=== PATIENT | female | born 1940 | race Caucasian/White ===

== ENCOUNTER 2017-08-20 12:22 | Inpatient (IN) | payer MEDICARE ==
[~2017-08-20 12:22] MED LIST: BISACODYL 10 MG SUPP PR; BISACODYL 5 MG TAB PO; FLEET ENEMA PR
[2017-08-20] MEDS: SENNA 8.6 MG TAB (SENOKOT) PO ×2 (21:00)
[2017-08-20] MEDS: ATORVASTATIN 20 MG TAB PO ×2 (21:03)
[2017-08-21 07:25] LABS: BASO # 0.1 10^3/uL (0.0-0.2); BASO % 0.8 % (0.0-1.0); EOS # 0.4 10^3/uL (0.0-0.50); EOS % 3.8 % (0.0-3.0); HEMATOCRIT 40.4 % (36.0-47.0); HEMOGLOBIN 13.1 g/dl (12.0-15.5); IMMATURE GRANULOCYTE % 1.2 % (0-3.0); LYMPH # 1.6 10^3/uL (1.5-4.5); LYMPH % 14.6 % (24.0-44.0); MEAN CORPUSCULAR HEMOGLOBIN 26.5 pg (27.0-33.0); MEAN CORPUSCULAR HGB CONC 32.4 g/dl (32.0-36.5); MEAN CORPUSCULAR VOLUME 81.6 fl (80.0-96.0); MONO # 1.5 10^3/uL (0.0-0.8); MONO % 13.5 % (0.0-5.0); NEUTROPHILS # 7.2 10^3/uL (1.8-7.7); NEUTROPHILS % 66.1 % (36.0-66.0); PLATELET COUNT, AUTOMATED 228 10^3/uL (150-450); RED BLOOD COUNT 4.95 10^6/uL (4.00-5.40); RED CELL DISTRIBUTION WIDTH 13.7 % (11.5-14.5); WHITE BLOOD COUNT 10.8 10^3/uL (4.0-10.0)
[2017-08-21 07:43] LABS: ALBUMIN 2.8 GM/DL (3.2-5.2); ALBUMIN/GLOBULIN RATIO 0.67 (1.00-1.93); ALKALINE PHOSPHATASE 79 U/L (45-117); ALT/SGPT 18 U/L (12-78); ANION GAP 5 MEQ/L (8-16); AST/SGOT 14 U/L (7-37); BILIRUBIN,TOTAL 0.5 MG/DL (0.2-1.0); BLOOD UREA NITROGEN 24 MG/DL (7-18); CARBON DIOXIDE LEVEL 29 MEQ/L (21-32); CHLORIDE LEVEL 104 MEQ/L (98-107); CREATININE FOR GFR 0.88 MG/DL (0.55-1.30); GLOMERULAR FILTRATION RATE > 60.0 (>39); GLUCOSE, FASTING 116 MG/DL (70-100); POTASSIUM SERUM 4.1 MEQ/L (3.5-5.1); SODIUM LEVEL 138 MEQ/L (136-145)
[2017-08-21] MEDS: QUINAPRIL 20 MG TAB PO ×2 (08:40)
[2017-08-21] MEDS: PANTOPRAZOLE 40MG TAB (PROTONIX) PO ×2 (08:40)
[2017-08-21] MEDS: FLUoxetine 20 MG CAP PO ×2 (08:40)
[2017-08-21] MEDS: ENOXAPARIN 40 MG/0.4 ML SYRINGE (J1650) SC ×2 (08:40)
[2017-08-21] MEDS: ASPIRIN 81 MG CHEW TABLET PO ×2 (08:40)
[2017-08-21] MEDS: ONDANSETRON 4 MG TAB (S0181) PO ×2 (09:40)
[2017-08-21] MEDS: SENNA 8.6 MG TAB (SENOKOT) PO ×2 (21:00)
[2017-08-21] MEDS: ATORVASTATIN 20 MG TAB PO ×2 (21:29)
[2017-08-22] MEDS: ASPIRIN 81 MG CHEW TABLET PO ×2 (08:26)
[2017-08-22] MEDS: PANTOPRAZOLE 40MG TAB (PROTONIX) PO ×2 (08:26)
[2017-08-22] MEDS: FLUoxetine 20 MG CAP PO ×2 (08:26)
[2017-08-22] MEDS: ENOXAPARIN 40 MG/0.4 ML SYRINGE (J1650) SC ×2 (08:27)
[2017-08-22] MEDS: QUINAPRIL 20 MG TAB PO ×2 (08:27)
[2017-08-22] MEDS: SENNA 8.6 MG TAB (SENOKOT) PO ×2 (20:25)
[2017-08-22] MEDS: ATORVASTATIN 20 MG TAB PO ×2 (20:25)
[2017-08-23 06:56] LABS: HEMATOCRIT 40.4 % (36.0-47.0); HEMOGLOBIN 13.2 g/dl (12.0-15.5); MEAN CORPUSCULAR HEMOGLOBIN 26.8 pg (27.0-33.0); MEAN CORPUSCULAR HGB CONC 32.7 g/dl (32.0-36.5); MEAN CORPUSCULAR VOLUME 81.9 fl (80.0-96.0); PLATELET COUNT, AUTOMATED 236 10^3/uL (150-450); RED BLOOD COUNT 4.93 10^6/uL (4.00-5.40); RED CELL DISTRIBUTION WIDTH 13.7 % (11.5-14.5); WHITE BLOOD COUNT 11.9 10^3/uL (4.0-10.0)
[2017-08-23] MEDS: ENOXAPARIN 40 MG/0.4 ML SYRINGE (J1650) SC ×2 (08:21)
[2017-08-23] MEDS: FLUoxetine 20 MG CAP PO ×2 (08:21)
[2017-08-23] MEDS: ASPIRIN 81 MG CHEW TABLET PO ×2 (08:21)
[2017-08-23] MEDS: PANTOPRAZOLE 40MG TAB (PROTONIX) PO ×2 (08:21)
[2017-08-23] MEDS: QUINAPRIL 20 MG TAB PO ×2 (08:23)
[2017-08-23 20:35] LABS: CALCIUM OXALATE CRYSTALS RFX SMALL; KETONE, URINE AUTO RFX NEGATIVE (NEGATIVE); MUCUS, URINE RFX SMALL (NEGATIVE); RBC, URINE AUTO RFX 4 /HPF (0-3); SPECIFIC GRAVITY UR AUTO RFX 1.015 (1.002-1.035); SQUAM EPITHELIAL CELL UR AURFX 0 /HPF (0-6)
[2017-08-23 20:38] LABS: LEUKOCYTE ESTERASE UR AUTO RFX 3+ (NEGATIVE); NITRITE, URINE AUTO RFX POSITIVE (NEGATIVE); WBC, URINE AUTO RFX 15 /HPF (0-3)
[2017-08-23] MEDS: ATORVASTATIN 20 MG TAB PO ×2 (22:26)
[2017-08-23] MEDS: SENNA 8.6 MG TAB (SENOKOT) PO ×2 (22:26)
[2017-08-23] MEDS: BACLOFEN 5MG PER 1/2 TABLET PO ×2 (22:26)
[2017-08-24] MEDS: ASPIRIN 81 MG CHEW TABLET PO ×2 (09:06)
[2017-08-24] MEDS: QUINAPRIL 20 MG TAB PO ×2 (09:06)
[2017-08-24] MEDS: FLUoxetine 20 MG CAP PO ×2 (09:06)
[2017-08-24] MEDS: PANTOPRAZOLE 40MG TAB (PROTONIX) PO ×2 (09:06)
[2017-08-24] MEDS: ENOXAPARIN 40 MG/0.4 ML SYRINGE (J1650) SC ×2 (09:07)
[2017-08-24] MEDS: BACTRIM 160MG/800MG DS TAB PO ×4 (09:07→21:45)
[2017-08-24] MEDS: SENNA 8.6 MG TAB (SENOKOT) PO ×2 (21:00)
[2017-08-24] MEDS: ATORVASTATIN 20 MG TAB PO ×2 (21:45)
[2017-08-24] MEDS: BACLOFEN 5MG PER 1/2 TABLET PO ×2 (21:45)
[2017-08-25] MEDS: ENOXAPARIN 40 MG/0.4 ML SYRINGE (J1650) SC ×2 (09:01)
[2017-08-25] MEDS: QUINAPRIL 20 MG TAB PO ×2 (09:01)
[2017-08-25] MEDS: FLUoxetine 20 MG CAP PO ×2 (09:01)
[2017-08-25] MEDS: PANTOPRAZOLE 40MG TAB (PROTONIX) PO ×2 (09:01)
[2017-08-25] MEDS: ASPIRIN 81 MG CHEW TABLET PO ×2 (09:01)
[2017-08-25] MEDS: BACTRIM 160MG/800MG DS TAB PO ×4 (09:01→21:14)
[2017-08-25] MEDS: BACLOFEN 5MG PER 1/2 TABLET PO ×2 (21:14)
[2017-08-25] MEDS: SENNA 8.6 MG TAB (SENOKOT) PO ×2 (21:14)
[2017-08-25] MEDS: ATORVASTATIN 20 MG TAB PO ×2 (21:14)
[2017-08-26 06:35] LABS: HEMOGLOBIN 12.9 g/dl (12.0-15.5); MEAN CORPUSCULAR HEMOGLOBIN 26.2 pg (27.0-33.0); MEAN CORPUSCULAR HGB CONC 32.3 g/dl (32.0-36.5); MEAN CORPUSCULAR VOLUME 81.3 fl (80.0-96.0); PLATELET COUNT, AUTOMATED 236 10^3/uL (150-450); RED BLOOD COUNT 4.92 10^6/uL (4.00-5.40); RED CELL DISTRIBUTION WIDTH 13.7 % (11.5-14.5); WHITE BLOOD COUNT 11.3 10^3/uL (4.0-10.0)
[2017-08-26] MEDS: QUINAPRIL 20 MG TAB PO ×2 (09:22)
[2017-08-26] MEDS: PANTOPRAZOLE 40MG TAB (PROTONIX) PO ×2 (09:22)
[2017-08-26] MEDS: BACTRIM 160MG/800MG DS TAB PO ×4 (09:22→20:56)
[2017-08-26] MEDS: ASPIRIN 81 MG CHEW TABLET PO ×2 (09:22)
[2017-08-26] MEDS: ENOXAPARIN 40 MG/0.4 ML SYRINGE (J1650) SC ×2 (09:22)
[2017-08-26] MEDS: FLUoxetine 20 MG CAP PO ×2 (09:22)
[2017-08-26] MEDS: BACLOFEN 5MG PER 1/2 TABLET PO ×2 (20:56)
[2017-08-26] MEDS: ATORVASTATIN 20 MG TAB PO ×2 (20:56)
[2017-08-26] MEDS: SENNA 8.6 MG TAB (SENOKOT) PO ×2 (21:00)
[2017-08-26] MEDS: ACETAMINOPHEN TAB 650MG DOSE (2X325MG) PO ×2 (21:03)
[2017-08-27] MEDS: ENOXAPARIN 40 MG/0.4 ML SYRINGE (J1650) SC ×2 (09:23)
[2017-08-27] MEDS: BACTRIM 160MG/800MG DS TAB PO ×4 (09:23→21:25)
[2017-08-27] MEDS: PANTOPRAZOLE 40MG TAB (PROTONIX) PO ×2 (09:24)
[2017-08-27] MEDS: FLUoxetine 20 MG CAP PO ×2 (09:24)
[2017-08-27] MEDS: QUINAPRIL 20 MG TAB PO ×2 (09:24)
[2017-08-27] MEDS: ASPIRIN 81 MG CHEW TABLET PO ×2 (09:24)
[2017-08-27] MEDS: BACLOFEN 5MG PER 1/2 TABLET PO ×2 (16:36)
[2017-08-27] MEDS: SENNA 8.6 MG TAB (SENOKOT) PO ×2 (21:25)
[2017-08-27] MEDS: ATORVASTATIN 20 MG TAB PO ×2 (21:25)
[2017-08-28] MEDS: FLUoxetine 20 MG CAP PO ×2 (09:03)
[2017-08-28] MEDS: PANTOPRAZOLE 40MG TAB (PROTONIX) PO ×2 (09:03)
[2017-08-28] MEDS: ASPIRIN 81 MG CHEW TABLET PO ×2 (09:03)
[2017-08-28] MEDS: BACTRIM 160MG/800MG DS TAB PO ×4 (09:03→20:19)
[2017-08-28] MEDS: ENOXAPARIN 40 MG/0.4 ML SYRINGE (J1650) SC ×2 (09:04)
[2017-08-28] MEDS: QUINAPRIL 20 MG TAB PO ×2 (09:04)
[2017-08-28] MEDS: BISACODYL 5 MG TAB PO ×2 (13:30)
[2017-08-28] MEDS: BACLOFEN 5MG PER 1/2 TABLET PO ×2 (17:25)
[2017-08-28] MEDS: ATORVASTATIN 20 MG TAB PO ×2 (20:19)
[2017-08-28] MEDS: SENNA 8.6 MG TAB (SENOKOT) PO ×2 (20:19)
[2017-08-29] MEDS: ACETAMINOPHEN TAB 650MG DOSE (2X325MG) PO ×2 (04:17)
[2017-08-29 06:52] LABS: HEMATOCRIT 41.1 % (36.0-47.0); HEMOGLOBIN 13.5 g/dl (12.0-15.5); MEAN CORPUSCULAR HEMOGLOBIN 26.6 pg (27.0-33.0); MEAN CORPUSCULAR HGB CONC 32.8 g/dl (32.0-36.5); MEAN CORPUSCULAR VOLUME 81.1 fl (80.0-96.0); PLATELET COUNT, AUTOMATED 273 10^3/uL (150-450); RED BLOOD COUNT 5.07 10^6/uL (4.00-5.40); RED CELL DISTRIBUTION WIDTH 13.8 % (11.5-14.5); WHITE BLOOD COUNT 10.9 10^3/uL (4.0-10.0)
[2017-08-29] MEDS: FLUoxetine 20 MG CAP PO ×2 (09:06)
[2017-08-29] MEDS: PANTOPRAZOLE 40MG TAB (PROTONIX) PO ×2 (09:07)
[2017-08-29] MEDS: QUINAPRIL 20 MG TAB PO ×2 (09:07)
[2017-08-29] MEDS: ENOXAPARIN 40 MG/0.4 ML SYRINGE (J1650) SC ×2 (09:07)
[2017-08-29] MEDS: ASPIRIN 81 MG CHEW TABLET PO ×2 (09:07)
[2017-08-29] MEDS: BACTRIM 160MG/800MG DS TAB PO ×4 (09:07→20:35)
[2017-08-29] MEDS: BACLOFEN 5MG PER 1/2 TABLET PO ×2 (18:20)
[2017-08-29] MEDS: ATORVASTATIN 20 MG TAB PO ×2 (20:35)
[2017-08-29] MEDS: SENNA 8.6 MG TAB (SENOKOT) PO ×2 (20:40)
[2017-08-30] MEDS: ACETAMINOPHEN TAB 650MG DOSE (2X325MG) PO ×4 (01:37→20:45)
[2017-08-30] MEDS: FLUoxetine 20 MG CAP PO ×2 (08:36)
[2017-08-30] MEDS: ASPIRIN 81 MG CHEW TABLET PO ×2 (08:36)
[2017-08-30] MEDS: BACTRIM 160MG/800MG DS TAB PO ×2 (08:36)
[2017-08-30] MEDS: QUINAPRIL 20 MG TAB PO ×2 (08:36)
[2017-08-30] MEDS: PANTOPRAZOLE 40MG TAB (PROTONIX) PO ×2 (08:36)
[2017-08-30] MEDS: ENOXAPARIN 40 MG/0.4 ML SYRINGE (J1650) SC ×2 (08:37)
[2017-08-30] MEDS: BACLOFEN 5MG PER 1/2 TABLET PO ×4 (16:00→20:45)
[2017-08-30] MEDS: SENNA 8.6 MG TAB (SENOKOT) PO ×2 (20:45)
[2017-08-30] MEDS: ATORVASTATIN 20 MG TAB PO ×2 (20:45)
[2017-08-31] MEDS: BACLOFEN 5MG PER 1/2 TABLET PO ×6 (08:04→22:23)
[2017-08-31] MEDS: PANTOPRAZOLE 40MG TAB (PROTONIX) PO ×2 (08:04)
[2017-08-31] MEDS: ASPIRIN 81 MG CHEW TABLET PO ×2 (08:04)
[2017-08-31] MEDS: ENOXAPARIN 40 MG/0.4 ML SYRINGE (J1650) SC ×2 (08:05)
[2017-08-31] MEDS: FLUoxetine 20 MG CAP PO ×2 (08:05)
[2017-08-31] MEDS: QUINAPRIL 20 MG TAB PO ×2 (08:07)
[2017-08-31] MEDS: SENNA 8.6 MG TAB (SENOKOT) PO ×2 (22:23)
[2017-08-31] MEDS: ATORVASTATIN 20 MG TAB PO ×2 (22:23)
[2017-09-01] MEDS: BACLOFEN 5MG PER 1/2 TABLET PO ×6 (08:06→20:24)
[2017-09-01] MEDS: ASPIRIN 81 MG CHEW TABLET PO ×2 (08:06)
[2017-09-01] MEDS: QUINAPRIL 20 MG TAB PO ×2 (08:07)
[2017-09-01] MEDS: FLUoxetine 20 MG CAP PO ×2 (08:07)
[2017-09-01] MEDS: PANTOPRAZOLE 40MG TAB (PROTONIX) PO ×2 (08:07)
[2017-09-01] MEDS: ENOXAPARIN 40 MG/0.4 ML SYRINGE (J1650) SC ×2 (08:07)
[2017-09-01] MEDS: ACETAMINOPHEN TAB 650MG DOSE (2X325MG) PO ×2 (14:50)
[2017-09-01] MEDS: ATORVASTATIN 20 MG TAB PO ×2 (20:24)
[2017-09-01] MEDS: SENNA 8.6 MG TAB (SENOKOT) PO ×2 (20:24)
[2017-09-02] MEDS: FLUoxetine 20 MG CAP PO ×2 (09:10)
[2017-09-02] MEDS: ASPIRIN 81 MG CHEW TABLET PO ×2 (09:10)
[2017-09-02] MEDS: PANTOPRAZOLE 40MG TAB (PROTONIX) PO ×2 (09:10)
[2017-09-02] MEDS: QUINAPRIL 20 MG TAB PO ×2 (09:10)
[2017-09-02] MEDS: BACLOFEN 5MG PER 1/2 TABLET PO ×6 (09:10→21:02)
[2017-09-02] MEDS: ENOXAPARIN 40 MG/0.4 ML SYRINGE (J1650) SC ×2 (09:11)
[2017-09-02] MEDS: SENNA 8.6 MG TAB (SENOKOT) PO ×2 (21:00)
[2017-09-02] MEDS: ATORVASTATIN 20 MG TAB PO ×2 (21:02)
[2017-09-03 06:18] LABS: BASO # 0.1 10^3/uL (0.0-0.2); BASO % 0.6 % (0.0-1.0); EOS # 0.4 10^3/uL (0.0-0.50); EOS % 3.4 % (0.0-3.0); HEMATOCRIT 39.6 % (36.0-47.0); HEMOGLOBIN 12.8 g/dl (12.0-15.5); IMMATURE GRANULOCYTE % 0.7 % (0-3.0); LYMPH # 1.9 10^3/uL (1.5-4.5); LYMPH % 18.2 % (24.0-44.0); MEAN CORPUSCULAR HEMOGLOBIN 26.3 pg (27.0-33.0); MEAN CORPUSCULAR HGB CONC 32.3 g/dl (32.0-36.5); MEAN CORPUSCULAR VOLUME 81.3 fl (80.0-96.0); MONO # 1.2 10^3/uL (0.0-0.8); MONO % 11.2 % (0.0-5.0); NEUTROPHILS # 6.8 10^3/uL (1.8-7.7); NEUTROPHILS % 65.9 % (36.0-66.0); PLATELET COUNT, AUTOMATED 256 10^3/uL (150-450); RED BLOOD COUNT 4.87 10^6/uL (4.00-5.40); RED CELL DISTRIBUTION WIDTH 13.8 % (11.5-14.5); WHITE BLOOD COUNT 10.4 10^3/uL (4.0-10.0)
[2017-09-03 06:37] LABS: ANION GAP 6 MEQ/L (8-16); BLOOD UREA NITROGEN 26 MG/DL (7-18); CALCIUM LEVEL 9.7 MG/DL (8.8-10.2); CARBON DIOXIDE LEVEL 24 MEQ/L (21-32); CHLORIDE LEVEL 106 MEQ/L (98-107); CREATININE FOR GFR 0.93 MG/DL (0.55-1.30); GLOMERULAR FILTRATION RATE > 60.0 (>39); GLUCOSE, FASTING 106 MG/DL (70-100); POTASSIUM SERUM 4.5 MEQ/L (3.5-5.1); SODIUM LEVEL 136 MEQ/L (136-145)
[2017-09-03] MEDS: PANTOPRAZOLE 40MG TAB (PROTONIX) PO ×2 (08:34)
[2017-09-03] MEDS: ENOXAPARIN 40 MG/0.4 ML SYRINGE (J1650) SC ×2 (08:34)
[2017-09-03] MEDS: QUINAPRIL 20 MG TAB PO ×2 (08:34)
[2017-09-03] MEDS: FLUoxetine 20 MG CAP PO ×2 (08:34)
[2017-09-03] MEDS: BACLOFEN 5MG PER 1/2 TABLET PO ×6 (08:34→21:34)
[2017-09-03] MEDS: ASPIRIN 81 MG CHEW TABLET PO ×2 (08:34)
[2017-09-03] MEDS: ATORVASTATIN 20 MG TAB PO ×2 (21:34)
[2017-09-03] MEDS: SENNA 8.6 MG TAB (SENOKOT) PO ×2 (21:34)
[2017-09-04] MEDS: BACLOFEN 5MG PER 1/2 TABLET PO ×6 (08:04→20:38)
[2017-09-04] MEDS: PANTOPRAZOLE 40MG TAB (PROTONIX) PO ×2 (08:04)
[2017-09-04] MEDS: FLUoxetine 20 MG CAP PO ×2 (08:04)
[2017-09-04] MEDS: QUINAPRIL 20 MG TAB PO ×2 (08:04)
[2017-09-04] MEDS: ASPIRIN 81 MG CHEW TABLET PO ×2 (08:04)
[2017-09-04] MEDS: ENOXAPARIN 40 MG/0.4 ML SYRINGE (J1650) SC ×2 (11:06)
[2017-09-04] MEDS: ATORVASTATIN 20 MG TAB PO ×2 (20:38)
[2017-09-04] MEDS: ACETAMINOPHEN TAB 650MG DOSE (2X325MG) PO ×2 (20:39)
[2017-09-04] MEDS: SENNA 8.6 MG TAB (SENOKOT) PO ×2 (20:39)
[2017-09-05] MEDS: PANTOPRAZOLE 40MG TAB (PROTONIX) PO ×2 (08:55)
[2017-09-05] MEDS: ASPIRIN 81 MG CHEW TABLET PO ×2 (08:55)
[2017-09-05] MEDS: BACLOFEN 5MG PER 1/2 TABLET PO ×6 (08:55→20:39)
[2017-09-05] MEDS: FLUoxetine 20 MG CAP PO ×2 (08:55)
[2017-09-05] MEDS: ENOXAPARIN 40 MG/0.4 ML SYRINGE (J1650) SC ×2 (08:55)
[2017-09-05] MEDS: QUINAPRIL 20 MG TAB PO ×2 (08:56)
[2017-09-05] MEDS: ATORVASTATIN 20 MG TAB PO ×2 (20:39)
[2017-09-05] MEDS: SENNA 8.6 MG TAB (SENOKOT) PO ×2 (20:39)
[2017-09-06] MEDS: ASPIRIN 81 MG CHEW TABLET PO ×2 (08:45)
[2017-09-06] MEDS: PANTOPRAZOLE 40MG TAB (PROTONIX) PO ×2 (08:45)
[2017-09-06] MEDS: BACLOFEN 5MG PER 1/2 TABLET PO ×6 (08:45→20:27)
[2017-09-06] MEDS: FLUoxetine 20 MG CAP PO ×2 (08:45)
[2017-09-06] MEDS: QUINAPRIL 20 MG TAB PO ×2 (08:48)
[2017-09-06] MEDS: ENOXAPARIN 40 MG/0.4 ML SYRINGE (J1650) SC ×2 (08:48)
[2017-09-06] MEDS: ATORVASTATIN 20 MG TAB PO ×2 (20:27)
[2017-09-06] MEDS: SENNA 8.6 MG TAB (SENOKOT) PO ×2 (20:29)
[2017-09-07] MEDS: BACLOFEN 5MG PER 1/2 TABLET PO ×6 (09:41→20:29)
[2017-09-07] MEDS: PANTOPRAZOLE 40MG TAB (PROTONIX) PO ×2 (09:41)
[2017-09-07] MEDS: FLUoxetine 20 MG CAP PO ×2 (09:41)
[2017-09-07] MEDS: QUINAPRIL 20 MG TAB PO ×2 (09:41)
[2017-09-07] MEDS: ENOXAPARIN 40 MG/0.4 ML SYRINGE (J1650) SC ×2 (09:41)
[2017-09-07] MEDS: ASPIRIN 81 MG CHEW TABLET PO ×2 (09:41)
[2017-09-07 14:57] LABS: AMORPHOUS SEDIMENT RFX MODERATE (NEGATIVE); KETONE, URINE AUTO RFX NEGATIVE (NEGATIVE); RBC, URINE AUTO RFX 3 /HPF (0-3); SPECIFIC GRAVITY UR AUTO RFX 1.015 (1.002-1.035); SQUAM EPITHELIAL CELL UR AURFX 0 /HPF (0-6); TRIPLE PHOSPHATE CRYSTALS RFX SMALL; WBC, URINE AUTO RFX 4 /HPF (0-3)
[2017-09-07 15:30] LABS: LEUKOCYTE ESTERASE UR AUTO RFX 2+ (NEGATIVE); NITRITE, URINE AUTO RFX POSITIVE (NEGATIVE)
[2017-09-07] MEDS: ATORVASTATIN 20 MG TAB PO ×2 (20:29)
[2017-09-07] MEDS: BACTRIM 160MG/800MG DS TAB PO ×2 (20:29)
[2017-09-07] MEDS: SENNA 8.6 MG TAB (SENOKOT) PO ×2 (20:59)
[2017-09-08] MEDS: QUINAPRIL 20 MG TAB PO ×2 (09:11)
[2017-09-08] MEDS: FLUoxetine 20 MG CAP PO ×2 (09:11)
[2017-09-08] MEDS: ASPIRIN 81 MG CHEW TABLET PO ×2 (09:11)
[2017-09-08] MEDS: BACTRIM 160MG/800MG DS TAB PO ×4 (09:11→20:10)
[2017-09-08] MEDS: BACLOFEN 5MG PER 1/2 TABLET PO ×6 (09:12→20:10)
[2017-09-08] MEDS: PANTOPRAZOLE 40MG TAB (PROTONIX) PO ×2 (09:12)
[2017-09-08] MEDS: ENOXAPARIN 40 MG/0.4 ML SYRINGE (J1650) SC ×2 (09:12)
[2017-09-08 20:04] LABS: BEDSIDE GLUCOSE 168 MG/DL (83-110)
[2017-09-08] MEDS: ATORVASTATIN 20 MG TAB PO ×2 (20:10)
[2017-09-08] MEDS: SENNA 8.6 MG TAB (SENOKOT) PO ×2 (21:00)
[2017-09-09] MEDS: ENOXAPARIN 40 MG/0.4 ML SYRINGE (J1650) SC ×2 (08:03)
[2017-09-09] MEDS: PANTOPRAZOLE 40MG TAB (PROTONIX) PO ×2 (08:03)
[2017-09-09] MEDS: FLUoxetine 20 MG CAP PO ×2 (08:03)
[2017-09-09] MEDS: ASPIRIN 81 MG CHEW TABLET PO ×2 (08:03)
[2017-09-09] MEDS: BACLOFEN 5MG PER 1/2 TABLET PO ×6 (08:03→20:52)
[2017-09-09] MEDS: BACTRIM 160MG/800MG DS TAB PO ×4 (08:03→20:52)
[2017-09-09] MEDS: QUINAPRIL 20 MG TAB PO ×2 (08:03)
[2017-09-09] MEDS: ATORVASTATIN 20 MG TAB PO ×2 (20:52)
[2017-09-09] MEDS: SENNA 8.6 MG TAB (SENOKOT) PO ×2 (20:53)
[2017-09-10 06:46] LABS: BASO # 0.1 10^3/uL (0.0-0.2); BASO % 0.6 % (0.0-1.0); EOS # 0.4 10^3/uL (0.0-0.50); HEMATOCRIT 38.6 % (36.0-47.0); HEMOGLOBIN 12.4 g/dl (12.0-15.5); IMMATURE GRANULOCYTE % 0.6 % (0-3.0); LYMPH % 12.1 % (24.0-44.0); MEAN CORPUSCULAR HEMOGLOBIN 26.3 pg (27.0-33.0); MEAN CORPUSCULAR HGB CONC 32.1 g/dl (32.0-36.5); MEAN CORPUSCULAR VOLUME 81.8 fl (80.0-96.0); MONO # 1.1 10^3/uL (0.0-0.8); MONO % 13.5 % (0.0-5.0); NEUTROPHILS # 5.5 10^3/uL (1.8-7.7); NEUTROPHILS % 68.2 % (36.0-66.0); PLATELET COUNT, AUTOMATED 234 10^3/uL (150-450); RED BLOOD COUNT 4.72 10^6/uL (4.00-5.40); RED CELL DISTRIBUTION WIDTH 13.9 % (11.5-14.5); WHITE BLOOD COUNT 8.1 10^3/uL (4.0-10.0)
[2017-09-10 07:15] LABS: ANION GAP 6 MEQ/L (8-16); BLOOD UREA NITROGEN 18 MG/DL (7-18); CALCIUM LEVEL 9.3 MG/DL (8.8-10.2); CARBON DIOXIDE LEVEL 25 MEQ/L (21-32); CHLORIDE LEVEL 107 MEQ/L (98-107); CREATININE FOR GFR 1.01 MG/DL (0.55-1.30); GLUCOSE, FASTING 108 MG/DL (70-100); POTASSIUM SERUM 4.3 MEQ/L (3.5-5.1); SODIUM LEVEL 138 MEQ/L (136-145)
[2017-09-10] MEDS: BACTRIM 160MG/800MG DS TAB PO ×2 (09:55)
[2017-09-10] MEDS: ASPIRIN 81 MG CHEW TABLET PO ×2 (09:55)
[2017-09-10] MEDS: QUINAPRIL 20 MG TAB PO ×2 (09:55)
[2017-09-10] MEDS: BACLOFEN 5MG PER 1/2 TABLET PO ×2 (09:55)
[2017-09-10] MEDS: PANTOPRAZOLE 40MG TAB (PROTONIX) PO ×2 (09:55)
[2017-09-10] MEDS: FLUoxetine 20 MG CAP PO ×2 (09:55)
[2017-09-10] MEDS: ENOXAPARIN 40 MG/0.4 ML SYRINGE (J1650) SC ×2 (09:56)
== END 2017-09-10 12:00 | DRG 57 ==
LOC: M PM&R 12:22
DX: I69.398 Other sequelae of cerebral infarction (principal); N39.0 Urinary tract infection, site not specified; Z68.43 Body mass index [BMI] 50.0-59.9, adult; I10 Essential (primary) hypertension; E78.5 Hyperlipidemia, unspecified; E66.9 Obesity, unspecified; E66.01 Morbid (severe) obesity due to excess calories; I69.392 Facial weakness following cerebral infarction; G47.33 Obstructive sleep apnea (adult) (pediatric); R11.0 Nausea; I69.391 Dysphagia following cerebral infarction; B96.4 Proteus (mirabilis) (morganii) as the cause of diseases classified elsewhere; M62.838 Other muscle spasm; M25.511 Pain in right shoulder; Z79.899 Other long term (current) drug therapy; Z79.82 Long term (current) use of aspirin